=== PATIENT | female | born 1985 | race Asian ===

== ENCOUNTER 2019-08-18 23:13 | Emergency (ER) | payer OTHER ==
[~2019-08-18] VITALS: Ht 172.7 cm; Wt 68.2 kg
[2019-08-18 23:22] VITALS: Ht 172.7 cm; Wt 68.2 kg
[2019-08-18 23:53] LABS: ANION GAP 9.8 mmol/L (8-16); CALCIUM 8.3 mg/dL (8.5-10.1); HEMATOCRIT 41.1 % (36.0-48.0); HEMOGLOBIN 13.6 g/dL (12-16); LYMPHOCYTES 27.9 % (15-50); MCH 29.3 pg (26.0-34.0); MCHC 33.1 g/dL (31.0-37.0); MCV 88.6 fL (80.0-100.0); MEAN PLATELET VOLUME 8.6 fL (7.4-10.4); NEUTROPHILS 65.1 % (40-80); PLATELET COUNT 260 10x3/uL (130-400); POTASSIUM - SERUM 3.8 mmol/L (3.5-5.1); RBC 4.64 10x6/uL (4.00-5.40); RDW 12.4 % (11.5-14.5); WBC 9.3 10x3/uL (4.8-10.8)
[2019-08-19 00:04] LABS: ALBUMIN 3.8 g/dL (3.4-5.0); BILIRUBIN - TOTAL 0.64 mg/dL (0.2-1.3); PROTEIN - SERUM 7.3 g/dL (6.4-8.2)
[2019-08-19 00:48] VITALS: BP 142/80
== END 2019-08-19 00:48 | disposition home or self-care (01) ==
LOC: D.ER 23:13
PROVIDERS: Family Medicine
DX: R10.9 Unspecified abdominal pain (principal)